=== PATIENT | female | born 1945 | race Asian ===

== ENCOUNTER 2024-10-21 12:59 | Emergency (ER) | payer MEDICAID, SELFPAY ==
[2024-10-21] VITALS (13 sets, daily range): BP systolic 118–203; BP diastolic 59–107; PULSE 58–72; RESP 16–18; TEMP 36.8–37.8; O2SAT 92–99; BMI 24.4
--- NOTE | 2024-10-21 14:04 | EKG_ITS ---
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
--- NOTE | 2024-10-21 14:04 | XR_ITS ---
Examination: PA and lateral chest 2 views TECHNIQUE: Upright PA and lateral chest 2 views Exam date and time: October 21, 2024, 1538 hours INDICATIONS: Onset chest pain beginning one week ago. FINDINGS: Mild enlargement left ventricle. Ectatic thoracic aorta. No lobar pneumonia or pulmonary edema. Minor probable scarring in the lingular segment Prominent osteopenia. IMPRESSION: Minor probable scarring in the lingular segment, clinical correlation advised
--- NOTE | 2024-10-21 14:04 | PD.EDRME ---
Rapid Medical Screening Exam RME Arrival date/time: 10/21/24 12:59 This is a 79-year-old female that comes in with complaints of abdominal pain and back pain has been going on for the past few days. Patient denies fever, nausea, vomiting, diarrhea. Patient has history of hypertension and is hypertensive at 200/99 upon arrival. I have greeted and performed a focused initial assessment of this patient. Initial appropriate labs ordered at this time. A comprehensive ED assessment and evaluation of the patient and analysis of all test and completion of medical decision making process will be conducted by additional ED provider. Chief Complaint: Back Pain/Injury Time Seen by Provider: 10/21/24 13:18 Vital signs: Vital Signs Temperature 98.8 F 10/21/24 13:48 Pulse Rate 68 10/21/24 13:48 Respiratory Rate 18 10/21/24 13:48 Blood Pressure 203/99 H 10/21/24 13:48 Pulse Oximetry (%) 98 10/21/24 13:48 Oxygen Delivery Method Room Air 10/21/24 13:48
[2024-10-21 14:59] LABS: Collection Type, Urine Voided
[2024-10-21 15:06] LABS: Basophils # (Auto) 0.1 Thou/mm3 (0.0-0.2); Basophils % (Auto) 1 % (0-2.5); Hemoglobin 12.7 g/dL (12.0-16.0); Immature Granulocytes % (Auto) 0 % (0-0); Lymphocytes % (Auto) 12 % (10-50); Monocytes % (Auto) 7 % (0-12); Nucleated Red Blood Cell % 0 /100 WBC (0)
[2024-10-21 15:08] LABS: Eosinophils # (Auto) 2.4 Thou/mm3 (0.0-0.5); Eosinophils % (Auto) 18 % (0-10); Hematocrit 41.4 % (36.0-46.0); Immature Granulocytes Auto 0.04 Thou/mm3 (0.00-0.00); Lymphocytes # (Auto) 1.6 Thou/mm3 (1.0-4.8); Mean Corpuscular HGB Conc 30.7 g/dl (31.0-37.0); Mean Corpuscular Hemoglobin 19.4 pg (25.0-35.0); Mean Corpuscular Volume 63 fL (80-100); Neutrophils # (Auto) 8.7 Thou/mm3 (1.8-7.7); Neutrophils % (Auto) 63 % (37-80); Platelet Count 207 Thou/mm3 (140-440); RDW Standard Deviation 32.4 fL (36.4-46.3); Red Blood Count 6.54 Miln/mm3 (4.00-5.20); White Blood Count 13.8 Thou/mm3 (3.6-11.0)
[2024-10-21 15:12] LABS: Bilirubin,Urine Negative (Negative); Blood,Urine Negative (Negative); Clarity,Urine Clear (Clear/Hazy); Color,Urine Colorless (Lt Yel-Yel); Culture Indicated,Urine Not Indicated; Glucose, Urine Negative (Negative); Ketones,Urine Negative (Negative); Leukocyte Esterase,Urine Negative (Negative); Nitrite,Urine Negative (Negative); Protein,Urine Negative (Neg - Trace); RBC,Urine 1 /hpf (0-3); Specific Gravity,Urine 1.011 (1.001-1.035); Squamous Epithelial Cell,Urine < 1 /hpf (0-5); Urobilinogen,Urine Negative mg/dL (0.0-1.0); WBC,Urine < 1 /hpf (0-5)
[2024-10-21 15:22] LABS: B-Type Natriuretic Peptide 104 pg/mL (0-100)
[2024-10-21 15:34] LABS: Alanine Aminotransferase < 7 U/L (10-49); Albumin, Serum 4.6 gm/dL (3.4-4.8); Albumin/Globulin Ratio 1.4 (1.2-2.2); Alkaline Phosphatase 82 U/L (46-116); Anion Gap 11 (7-16); Aspartate Amino Transferase 11 U/L (0-34); BUN/Creatinine Ratio 14 Ratio (12-20); Bilirubin,Total 0.8 mg/dL (0.3-1.2); Blood Urea Nitrogen 10 mg/dL (9-23); Carbon Dioxide 26.3 mMol/L (20.0-31.0); Chloride 106 mMol/L (98-107); Creatinine (Component) 0.7 mg/dL (0.6-1.3); Estimated Creatinine Clearance 51.4 mL/min (>60); Globulin 3.2 gm/dL (2.3-3.5); Glucose 120 mg/dL (74-106); Osmolality,Calculated 284 (275-295); Potassium 3.5 mMol/L (3.4-5.1); Sodium 143 mMol/L (136-145); Total Protein 7.8 gm/dL (5.7-8.2); Troponin I < 0.020 ng/mL (0.0-0.045); eGFR > 60 See Note
--- NOTE | 2024-10-21 15:42 | EDNOTE_ITS ---
<Statement entered by Lluvia Calle MD - 10/22/24 04:25> As co-signing physician, I was present and available for consult prn. I concur with the plan and care as documented by the midlevel provider. ED Abdominal Pain RME/HPI General Chief Complaint: Back Pain/Injury Stated complaint: BACK/RIGHT HIP PAIN x2 DAYS Time seen by provider: 10/21/24 13:18 Arrival date/time: 10/21/24 12:59 RME / HPI RME / HPI narrative: 79-year-old female patient came in for evaluation regarding right sided abdominal pain. Onset of symptoms for the last 2 days as worsening pain to the right lower abdomen, radiating to the back, described as sharp pain, patient had to hold onto something due to worsening pain. Patient denies any fever denies any vomiting denies any diarrhea or constipation. Patient was also noted to h ave blood pressure above 200 systolic. Patient denies any bladder incontinence. Denies any bowel incontinence. Denies any paresthesia or saddle anesthesia. No medication was taken prior to arrival. Related Data Previous Rx's ?Medication ?Instructions ?Recorded acetaminophen 300 mg-codeine 30 mg 1 tab PO Q8H PRN pa in #20 tabs 10/21/24 tablet cyclobenzaprine 10 mg tablet 10 mg PO TID PRN muscle s pasm #20 10/21/24 tabs Allergies Allergy/AdvReac Type Severity Reaction Status Date / Time No Known Allergies Allergy Verified 10/21/24 13:04 Review of Systems Review of Systems Narrative Review of Systems: Review of system reviewed and within normal limits except mentioned in HPI ED Exam Narrative Physical exam: VITAL SIGNS: Reviewed. GENERAL APPEARANCE: Alert and interactive, follows commands, no acute distress, HEAD AND FACE: Non-traumatic. ENT: PERRL, pink conjunctivitis, eyelid no trauma, Mucous membrane moist. NECK: Supple, nontender, no nuchal rigidity. CHEST: No tenderness, no crepitus, no paradoxical movement, no retractions. LUNGS: Clear, well ventilated, symmetric, no rales, no wheezing, no ronchi, no stridor, good breath sounds bilaterally. HEART: Regular rate, regular rhythm, no murmur, no gallops. ABDOMEN: Soft, positive bowel sounds, nondistended, no guarding, right lower quadrant tenderness, no rebound, no masses, RECTAL: Deferred. GENITAL: Deferred. NEUROLOGICAL: Gross motor function intact sensory function intact, Appropriate for age. MUSCULOSKELETAL: low back nontender, full range of motion. EXTREMITIES: Nontender, full range of motion. SKIN: Color pink, dry, no rash, no lacerations, no abrasions, no contusions. LYMPHATICS: Deferred. Course Quality Measures none Orders Category Date Time Status CT Screening NOW Care 10/21/24 15:44 Active EKG (ED ONLY) *Do not use* NOW Care 10/21/24 14:[address] abdomen pelvis w con Stat Exams 10/21/24 15:[address] lumbar spine wo con Stat Exams 10/21/24 15:52 Completed EKG (ED Only) Stat Exams 10/21/24 14:04 Draft XR chest 2V Stat Exams 10/21/24 14:04 Completed BNP [B-Type Natriuretic Peptide] Stat Lab 10/21/24 14:48 Completed CBC Stat Lab 10/21/24 14:48 Completed Comprehensive Metabolic Panel Stat Lab 10/21/24 14:48 Completed Troponin I Stat Lab 10/21/24 14:48 Completed Urinalysis, C/S if Indicated Stat Lab 10/21/24 14:24 Completed Ketorolac Inj [Toradol Inj] Med 10/21/24 20:41 Discontinued 30 mg IVP X1 ONE Morphine Inj Med 10/21/24 15:44 Discontinued 4 mg IVP X1 ONE Ondansetron Inj [Zofran Inj] Med 10/21/24 15:44 Discontinued 4 mg IV X1 ONE Sodium Chloride 0.9% 1000 ml [Ns] 1,000 ml Med 10/21/24 15:44 Discontinued IV 999 mls/hr cloNIDine HCL [Catapres] Med 10/21/24 20:41 Discontinued 0.1 mg PO X1 ONE hydrALAZINE HCL [Apresoline] Med 10/21/24 17:53 Discontinued 25 mg PO X1 ONE Vital Signs Vital signs: Vital Signs Temperature 98.8 F 10/21/24 13:48 Pulse Rate 68 10/21/24 13:48 Respiratory Rate 18 10/21/24 13:48 Blood Pressure 203/99 H 10/21/24 13:48 Pulse Oximetry (%) 98 10/21/24 13:48 Oxygen Delivery Method Room Air 10/21/24 13:48 Abdominal Pain MDM MDM Narrative MDM Narrative:: 79-year-old female patient came in for evaluation regarding right sided abdominal pain. Onset of symptoms for the last 2 days as worsening pain to the right lower abdomen, radiating to the back, described as sharp pain, patient had to hold onto something due to worsening pain. Patient denies any fever denies any vomiting denies any diarrhea or constipation. Patient was also noted to have blood pressure above 200 systolic. Patient denies any bladder incontinence. Denies any bowel incontinence. Denies any paresthesia or saddle anesthesia. No medication was taken prior to arrival. Patient's workup today significant for slight leukocytosis of 13.8 CMP unremarkable urinalysis no UTI CT scan of the lumbar spine showed Severe os teopenia Chronic osteoporotic compressions T12, L1, L2 No acute lumbar fracture L5-S1 4 mm central lumbar disc bulge contiguous with the right and left S1 nerve roots L4-L5 3 mm central lumbar disc bulge CT scan of the abdomen and pelvis showedRecommend renal sonography to confirm 8mm cyst posterior margin left kidney No renal or ureteral calculi, no hydronephrosis Normal appendix A few loops of fluid-filled distended small bowel in the pelvis, consider ileus, enteritis Results discussed with the family. And patient. Patient was given copy of her CT scan. Patient was given pain medication and blood pressure medication. Latest blood pressure was noted to be 118/59 prior to discharge. Was advised to buy low back brace to help with the back pain. Patient was also advised to follow-up with a spine surgeon next week. No further imaging needed at this time patient is not showing any cauda equina syndrome. Patient data External records reviewed:: None Clinical information provided by:: patient Social determinants that could affect healthcare access:: none Patient has the following chronic illnesses:: Hypertension How is presenting disease/condition affected by chronic disease/condition?: uneffected by Evaluation data The following diagnostics were reviewed and interpreted by me:: lab results, radiology exam(s) and EKG tracing(s) Lab and/or radiology exams considered but not ordered:: None Interpretation Summary: See results in [facility] EKG showed normal sinus rhythm, ventricular rate of 65 bpm, no ST segment elevation depression noted. Medications / Prescriptions Medications or Prescriptions considered but not ordered:: None Medication administrations:: Medication Administration History Discontinued Medications Clonidine (Clonidine Hcl 0.1 Mg Tablet) 0.1 mg PO X1 ONE Stop: 10/21/24 20:42 Last Admin: 10/21/24 20:54 Dose: 0.1 mg Documented By: ADITYA Hydralazine HCl (Hydralazine Hcl 25 Mg Tablet) 25 mg PO X1 ONE Stop: 10/21/24 17:54 Last Admin: 10/21/24 17:58 Dose: 25 mg Documented By: GER Sodium Chloride (Ns) 1,000 mls @ 999 mls/hr IV .Q1H1M ONE Stop: 10/21/24 16:44 Last Infusion: 10/21/24 20:42 Dose: Infused Documented By: Admin: 10/21/24 17:28 Dose: 999 mls/hr Documented By: MARIELY Ketorolac Tromethamine (Ketorolac Inj 30 Mg/Ml Vial) 30 mg IVP X1 ONE Stop: 10/21/24 20:42 Last Admin: 10/21/24 20:54 Dose: 30 mg Documented By: ADITYA Morphine Sulfate (Morphine Sulf Inj 10 Mg/Ml Vial) 4 mg IVP X1 ONE Stop: 10/21/24 15:45 Last Admin: 10/21/24 17:30 Dose: 4 mg Documented By: MARIELY Ondansetron HCl (Ondansetron Inj 2 Mg/Ml Inj 2 Ml) 4 mg IV X1 ONE; Protocol Stop: 10/21/24 15:45 Last Admin: 10/21/24 17:31 Dose: 4 mg Documented By: MARIELY Morphine Toradol IV fluids hydralazine clonidine and Zofran Consultations Consultation(s) initiated? (list below): No Diagnosis Differential diagnosis abdominal pain: abdominal pain and other (Low back pain, multiple chronic compression fracture lumbar spine, multiple disc bulging lumbar spine) Most likely diagnosis given after review of the tests above:: Low back pain, multiple chronic compression fracture lumbar spine, multiple disc bulging lumbar spine, abdominal pain Admission Indicated Admission indicated?: not indicated Admission Request Was there a request for admission?: No Disposition Plan Disposition Plan: Discharge Discharge Attestation Discharge Attestation: The patient and all family members were given an opportunity to ask questions and understood the discharge instructions. Discharge instructions specifically effects, indications for sooner follow up or return to the emergency department, and the expected course of current diagnosis. Patient condition: Stable Discharge Plan Plan Patient Disposition: HOME (Self Care) Discharge Disposition comment: Stable Prescriptions/Referrals Prescriptions/Med Rec: New acetaminophen-codeine 300-30 mg tablet 1 tab PO Q8H PRN (Reason: pain) Qty: 20 0RF cyclobenzaprine 10 mg tablet 10 mg PO TID PRN (Reason: muscle spasm) Qty: 20 0RF Referrals: Henrique Schmidt MD [Primary Care Provider] - In 1 week Problem List Clinical Impression: Compression fx, lumbar spine Patient/Caregiver Discharge Instructions Discharge Activity: activity as tolerated Education Materials: Back Safety Bed Additional Instructions: Thank you for the opportunity for serving you today. You are stable for discharged . You are advised to: Follow-up with your PCP in 1 to 2 days Return to ED for worsening of symptoms Increase oral fluids Take medication as prescribed Bedrest for total 3 days advance as tolerated You may wear back brace that you can buy in [place] [employer] or [employer] As your PCP to refer you to spine surgeon Print Language: Tagalog Stand Alone Forms: Larissa Award Info., Patient Portal Info Letter JULITA/JAMIE Supervising Physician JULITA/JAMIE Supervising Physician: MD Alva
--- NOTE | 2024-10-21 15:44 | XR_ITS ---
Examination: CT abdomen with intravenous contrast CT pelvis with intravenous contrast 2-D coronal reconstructions 2-D sagittal reconstructions Date and time of exam:October 21, 2024, 1848 hours INDICATIONS: Onset of right lower abdominal pain today. CTDI: vol (mGy) 7.95 DLP: (mGycm) 385 Technique: Multiple axial sections of the abdomen and pelvis have been obtained. 64 slice high-resolution scanner used. 3 mm axial sections have been obtained, post intravenous injection of 60 cc [id number] 2-D sagittal, coronal reconstructions obtained. Low dose protocols were performed. One or more of the following dose reduction techniques were used; automated exposure control, adjustment of the mA and/or KV according to patient size, use of iterative reconstruction technique. Findings: No focal liver or splenic lesions No gallstones No pancreatic or adrenal mass 8 mm complex cyst posterior margin left kidney No hydronephrosis or ureteral calculi Aorta normal size. Normal appendix A few loops of fluid distended small bowel in the pelvis Atrophic uterus Urinary bladder intact Please see the CT scan lumbar spine report today IMPRESSION: Recommend renal sonography to confirm 8mm cyst posterior margin left kidney No renal or ureteral calculi, no hydronephrosis Normal appendix A few loops of fluid-filled distended small bowel in the pelvis, consider ileus, enteritis
--- NOTE | 2024-10-21 15:52 | XR_ITS ---
Examination: CT lumbar spine, without contrast. 2-D sagittal reconstructions. 2-D coronal reconstructions. 3-D reconstructions. Date and time of exam:October 21, 2024, 1844 hours INDICATIONS: Onset lower back pain today CTDI: vol (mGy):19.7 DLP: (mGycm):968 Technique: Multiple 1.25 mm axial sections of the lumbar spine without intravenous contrast have been obtained. 2-D sagittal and coronal reconstructions have been obtained. 3-D reconstructions have been obtained. Low dose protocols were performed. One or more of the following dose reduction techniques were used; automated exposure control, adjustment of the mA and/or KV according to patient size, use of iterative reconstruction technique. Findings: Severe osteopenia Severe chronic osteoporotic compression T12 with retropulsion of the posterior superior margin of this vertebral body 4 mm Mild chronic osteoporotic compression L1 Moderate chronic osteoporotic compression L2 No acute lumbar fracture Lumbar pedicles, laminae, transverse and posterior spinous processes are intact L5-S1 4 mm central lumbar disc bulge contiguous with the right and left S1 nerve roots L4-L5 3 mm central lumbar disc bulge L3-L4 no disc protrusion L2-L3 no disc protrusion L1-L2 no disc protrusion IMPRESSION: Severe osteopenia Chronic osteoporotic compressions T12, L1, L2 No acute lumbar fracture L5-S1 4 mm central lumbar disc bulge contiguous with the right and left S1 nerve roots L4-L5 3 mm central lumbar disc bulge
[2024-10-21] MEDS: SODIUM CHLORIDE 0.9% 1000 ML 1,000 ML 999 ML IV (17:28)
[2024-10-21] MEDS: MORPHINE SULF INJ 10 MG/ML VIAL 4 MG IVP (17:30)
[2024-10-21] MEDS: ONDANSETRON INJ 2 MG/ML INJ 2 ML 4 MG IV (17:31)
[2024-10-21] MEDS: hydrALAZINE HCL 25 MG TABLET PO (17:58)
[2024-10-21] MEDS: cloNIDine HCL 0.1 MG TABLET PO (20:54)
[2024-10-21] MEDS: KETOROLAC INJ 30 MG/ML VIAL IVP (20:54)
[2024-10-21 22:35] LABS: Path Review Blood Smear Sent to Pathologist
== END 2024-10-21 22:08 | disposition home or self-care (01) ==
PROVIDERS: Nurse Practitioner Family; Emergency Provider Emergency Medicine; PCP Family Medicine
DX: M80.88XA Other osteoporosis with current pathological fracture, vertebra(e), initial encounter for fracture (principal); R07.9 Chest pain, unspecified; R10.31 Right lower quadrant pain; R94.31 Abnormal electrocardiogram [ECG] [EKG]; M85.88 Other specified disorders of bone density and structure, other site; M51.360 Other intervertebral disc degeneration, lumbar region with discogenic back pain only; N28.1 Cyst of kidney, acquired; K63.89 Other specified diseases of intestine; I10 Essential (primary) hypertension
CPT/HCPCS: 36415; 71046; 72131; 74177; 80053; 81001; 83880; 84484; 85025; 93005; 96361; 96374; 96375; 99285; A4649; J1885; J2270; J2405; J7030; Q9967; A9270